=== PATIENT | male | born 1965 | race Caucasian/White ===

== ENCOUNTER 2022-01-07 12:49 | Inpatient (IN) | payer OTHER ==
[~2022-01-07] VITALS: Ht 167.6 cm; Wt 108.9 kg
[2022-01-07 14:49] LABS: BASOPHILS % 0.4 % (0.0-2.0); EOSINOPHILS % 3.1 % (0.0-5.0); LYMPHOCYTES % 42.2 % (20.0-50.0); MEAN CORPUSCULAR HEMOGLOBIN 34.2 pg (28.0-32.0); MEAN CORPUSCULAR VOLUME 100.2 fL (80.0-94.0); NEUTROPHILS % 40.3 % (40.0-76.0); PLATELET 206 x1000/uL (130-400); RED BLOOD CELL COUNT 4.09 mill/uL (4.7-6.1); RED CELL DISTRIBUTION WIDTH 15.5 % (11.6-14.6)
[2022-01-07 14:58] LABS: CHLORIDE 106 mEq/L (98-107)
[2022-01-07] MEDS ORDERED: NITROGLYCERIN 0.4MG TABLET SL SL PRN (15:30)
[2022-01-07] MEDS ORDERED: ASPIRIN 325MG EC TABLET PO NR (15:30)
[2022-01-07] MEDS ORDERED: ASPIRIN 325MG EC TABLET PO ONE (15:30)
[2022-01-08] MEDS ORDERED: ONDANSETRON HCL 4MG/2ML INJ IV PRN (09:30)
[2022-01-08] MEDS ORDERED: ACETAMINOPHEN 325MG TABLET PO PRN (09:30)
[2022-01-08 11:00] VITALS: BP 150/107
[2022-01-08 12:10] VITALS: BP 130/96
[2022-01-08] MEDS ORDERED: LISI20TA31 PO (12:18)
[2022-01-08] MEDS ORDERED: AMLO10TA4 PO (12:18)
[2022-01-08] MEDS: AMLODIPINE 10MG TABLET PO SCH (14:01)
[2022-01-08 14:06] VITALS: BP 150/107
[2022-01-08 16:00] VITALS: BP 133/81
[2022-01-08 20:00] VITALS: BP 144/100
[2022-01-08] MEDS: METOPROLOL TARTRATE 25MG TABLET PO SCH (20:52)
[2022-01-09] VITALS: BP 101/63
[2022-01-09 04:00] VITALS: BP 102/65
[2022-01-09 08:00] VITALS: BP 125/87
[2022-01-09] MEDS: METOPROLOL TARTRATE 25MG TABLET PO SCH (08:50)
[2022-01-09] MEDS: AMLODIPINE 10MG TABLET PO SCH (08:50)
[2022-01-09] MEDS ORDERED: ASPIRIN 81MG TABLET PO SCH (09:00)
[2022-01-09] MEDS ORDERED: REGADENOSON 0.4 MG/5 ML IV ONE (10:21)
[2022-01-09 12:00] VITALS: BP 115/54
[2022-01-09] MEDS ORDERED: REGADENOSON 0.4 MG/5 ML IV NR (13:00)
[2022-01-09 16:00] VITALS: BP 135/82
[2022-01-09 16:53] VITALS: BP 135/82
== END 2022-01-09 17:20 | disposition home or self-care (01) | DRG 203 ==
LOC: ER 12:49 → MICUSO 20:07 → 7WST 01-08 10:28
PROVIDERS: ADMIT Internal Medicine; ATTEND Internal Medicine
DX: M94.0 Chondrocostal junction syndrome [Tietze] (principal); E66.01 Morbid (severe) obesity due to excess calories; I20.9 Angina pectoris, unspecified; E78.00 Pure hypercholesterolemia, unspecified; I10 Essential (primary) hypertension; E78.5 Hyperlipidemia, unspecified; R77.8 Other specified abnormalities of plasma proteins; Z20.822 Contact with and (suspected) exposure to COVID-19; Z68.38 Body mass index [BMI] 38.0-38.9, adult; Z79.899 Other long term (current) drug therapy
CPT/HCPCS: 36415; 71045; 78452; 80053; 83880; 84484; 85025; 87426; 93005; 93017; 93306; 93971; 99285; A9500; J2785

== ENCOUNTER 2024-08-17 17:40 | Inpatient (IN) | payer MEDICAID, OTHER ==
[~2024-08-17] VITALS: Ht 177.8 cm; Wt 105.0 kg
[~2024-08-17 17:40] MED LIST: AMLO10TA4 PO; LISI20TA31 PO
[2024-08-17 20:09] LABS: BASOPHILS % 0.3 % (0.0-2.0); HEMATOCRIT. 32.3 % (42.0-52.0); LYMPHOCYTES % 42.7 % (20.0-50.0); MEAN CORPUSCULAR HEMOGLOBIN 40.7 pg (28.0-32.0); MEAN CORPUSCULAR VOLUME 119.8 fL (80.0-94.0); MEAN PLATELET VOLUME 9.4 fl (7.4-10.4); MONOCYTES % 8.6 % (2.0-8.0); NEUTROPHILS % 44.4 % (40.0-76.0); PLATELET 129 x1000/uL (130-400); RED BLOOD CELL COUNT 2.69 mill/uL (4.7-6.1); RED CELL DISTRIBUTION WIDTH 15.2 % (11.6-14.6); WHITE BLOOD COUNT 3.7 x1000/uL (4.5-11.0)
[2024-08-17 20:17] LABS: CHLORIDE 105 mEq/L (98-107); POTASSIUM 4.2 mEq/L (3.5-5.1); SODIUM 141 mEq/L (136-145)
[2024-08-17 20:18] LABS: ADD RBC MORPHOLOGY YES; CALCIUM 9.1 mg/dL (8.7-10.4); CARBON DIOXIDE 27 mEq/L (21-32); DIFFERENTIAL COMMENT 1
[2024-08-17 20:23] LABS: CREATININE 1.2 mg/dL (0.6-1.3); GLUCOSE 90 mg/dL (70-105); UREA NITROGEN BLOOD 19 mg/dL (9-23)
[2024-08-17 20:45] LABS: PLATELET ESTIMATE DECREASED
[2024-08-17 21:35] LABS: TROPONIN I HIGH SENSITIVITY 33 ng/L (3.0-53)
[2024-08-17 23:12] LABS: TROPONIN I HIGH SENSITIVITY 31 ng/L (3.0-53)
[2024-08-18] MEDS ORDERED: CLONIDINE 0.1MG TABLET PO PRN (02:30)
[2024-08-18 02:46] VITALS: BP 137/80; PULSE 81; RESP 19; TEMP 37
[2024-08-18 04:00] VITALS: BP 113/64; PULSE 85; RESP 18; TEMP 36.4; O2SAT 99
[2024-08-18 08:00] VITALS: BP 117/82; PULSE 88; RESP 20; TEMP 36.1; O2SAT 99
[2024-08-18] MEDS: AMLODIPINE 10MG TABLET PO SCH (08:36)
[2024-08-18] MEDS: LISINOPRIL 20MG TABLET PO SCH (08:36)
[2024-08-18] MEDS ORDERED: FERR325T6 PO (08:42)
[2024-08-18] MEDS ORDERED: ASPI-1497 PO (08:42)
[2024-08-18] MEDS ORDERED: ATOR-2 PO (08:42)
[2024-08-18] MEDS ORDERED: ONDANSETRON HCL 4MG/2ML INJ IV PRN (10:15)
[2024-08-18] MEDS ORDERED: ACETAMINOPHEN 325MG TABLET PO PRN (10:15)
[2024-08-18 12:00] VITALS: BP 119/84; PULSE 87; RESP 18; TEMP 36.5; O2SAT 100
[2024-08-18 12:46] LABS: CLARITY URINE CLEAR (CLEAR); COLOR URINE YELLOW (YELLOW); GLUCOSE URINE NEGATIVE (NEGATIVE); KETONES URINE TRACE (NEGATIVE); LEUKOCYTE ESTERASE URINE NEGATIVE (NEGATIVE); NITRITE URINE NEGATIVE (NEGATIVE); OCCULT BLOOD URINE NEGATIVE (NEGATIVE); PROTEIN URINE NEGATIVE (NEGATIVE); SPECIFIC GRAVITY URINE 1.018 (1.005-1.030); UROBILINOGEN URINE 0.2 E.U./dL (0.2-1.0)
[2024-08-18 16:00] VITALS: BP 100/55; PULSE 82; RESP 18; TEMP 36.2; O2SAT 97
[2024-08-18 20:00] VITALS: BP 95/50; PULSE 78; RESP 19; TEMP 36.6; O2SAT 99
[2024-08-18 20:25] LABS: AMMONIA 47 uMol/L (<32)
[2024-08-18] MEDS ORDERED: IOHEXOL-300 100 ML BOTTLE ONE (21:10)
[2024-08-19] VITALS: BP 91/58; PULSE 84; RESP 18; TEMP 36.6; O2SAT 99
[2024-08-19 04:00] VITALS: BP 128/78; PULSE 83; RESP 19; TEMP 37.2; O2SAT 100
[2024-08-19 07:52] VITALS: BP 124/81; PULSE 99; RESP 18; TEMP 36.5; O2SAT 97
[2024-08-19 12:00] VITALS: BP 123/72; PULSE 88; RESP 18; TEMP 36.7; O2SAT 100
[2024-08-19 16:00] VITALS: BP 103/69; PULSE 99; RESP 18; TEMP 36.4; O2SAT 99
[2024-08-19 20:00] VITALS: BP 101/51; PULSE 89; RESP 20; TEMP 36.2; O2SAT 97
[2024-08-20] VITALS: BP 139/67; PULSE 83; RESP 20; TEMP 36; O2SAT 97
[2024-08-20 04:00] VITALS: BP 112/65; PULSE 76; RESP 18; TEMP 36.1; O2SAT 98
[2024-08-20 08:00] VITALS: BP 103/70; PULSE 81; RESP 18; TEMP 36.4; O2SAT 96
[2024-08-20 12:00] VITALS: BP 99/68; PULSE 79; RESP 17; TEMP 36.2; O2SAT 97
[2024-08-20 16:00] VITALS: BP 114/73; PULSE 78; RESP 16; TEMP 36.3; O2SAT 99
[2024-08-20 16:02] VITALS: BP 114/73; PULSE 78; TEMP 97.4; O2SAT 99
== END 2024-08-20 16:53 | disposition home or self-care (01) | DRG 347 ==
LOC: ER 17:40 → 6WST 23:39 → 4WST 08-20 13:23
PROVIDERS: ADMIT Internal Medicine; ATTEND Internal Medicine
DX: M48.061 Spinal stenosis, lumbar region without neurogenic claudication (principal); D61.818 Other pancytopenia; E72.20 Disorder of urea cycle metabolism, unspecified; K76.0 Fatty (change of) liver, not elsewhere classified; M51.16 Intervertebral disc disorders with radiculopathy, lumbar region; M47.26 Other spondylosis with radiculopathy, lumbar region; I10 Essential (primary) hypertension; R63.0 Anorexia; N20.0 Calculus of kidney; E66.811 Obesity, class 1; N40.0 Benign prostatic hyperplasia without lower urinary tract symptoms; I25.10 Atherosclerotic heart disease of native coronary artery without angina pectoris; E78.00 Pure hypercholesterolemia, unspecified; Z79.82 Long term (current) use of aspirin; Z79.899 Other long term (current) drug therapy; Z68.33 Body mass index [BMI] 33.0-33.9, adult
CPT/HCPCS: 36415; 71045; 71260; 72148; 74177; 80048; 81003; 82140; 84484; 85025; 86850; 86900; 93005; 93306; 99285; Q9967